=== PATIENT | male | born 1960 | race American Indian/Alaskan Native ===

== ENCOUNTER 2018-11-15 00:49 | Inpatient (IN) | payer BC ==
[2018-11-15] MEDS ORDERED: NACL 0.9% 500 ML 500 ML IV ONE (01:03)
[2018-11-15] MEDS ORDERED: TORADOL IV ONE (01:03)
[2018-11-15] MEDS ORDERED: NITROSTAT SL PRN (01:03)
[2018-11-15] MEDS ORDERED: PEPCID IV ONE (01:03)
--- NOTE | 2018-11-15 01:18 | Emergency Department Report ---
ED Chest Pain HPI - General Chief Complaint: Chest Pain Stated Complaint: CHEST PAIN Time Seen by Provider: 11/15/18 00:54 Source: patient, RN notes reviewed Mode of arrival: Ambulatory Limitations: No Limitations - History of Present Illness Initial Comments: This is a 58-year-old gentleman. This patient is not known to this provider previously in a clinical capacity. 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 He endorses a past medical history of hypertension, and takes lisinopril and Procardia. He does not take aspirin. He reports no family history of cardiac disease or pulmonary embolus/DVT that he is aware of. The patient is right-hand dominant, and presents to the emergency room with a complaint of nontraumatic right-sided burning chest pain. The chest pain is present for the past 15-20 minutes. The chest pain is constant. It does not radiate anywhere. The patient denies vomiting, diaphoresis, shortness of breath. The patient denies leg pain, leg swelling, abdominal pain, nausea, vomiting, diaphoresis, shortness of breath, hematemesis or bright red blood per rectum. He reports no recent erectile dysfunction medications, such cialis, or Viagra. He reports a recent trip to [place] within the past 2 weeks. MD Complaint: chest pain -: Gradual Onset: during rest Pain Location: right chest Pain Radiation: none Severity: moderate Quality: aching, other Consistency: constant Improves With: nothing Worsens With: nothing Context: recent travel Aspirin use within the Past 7 Days: (0) No - Related Data On Oral Contraceptives: No Previous Rx's Medication Instructions Recorded Last Taken Type Aspirin [Aspirin BABY CHEW TAB] 81 mg PO QDAY #30 tab.chew 11/15/18 Unknown Rx Famotidine [Pepcid] 20 mg PO QDAY #30 tablet 11/15/18 Unknown Rx Allergies Allergy/AdvReac Type Severity Reaction Status Date / Time No Known Allergies Allergy Unverified 11/15/18 00:56 Heart Score - HEART Score History: Slightly suspicious EKG: Non-specific Age: 45-65 Risk factors: 1-2 risk factors Troponin: < normal limit HEART Score: 3 - Critical Actions Critical Actions: 0-3 pts:0.9-1.7%risk of adverse cardiac event.Candidate for discharge ED Review of Systems ROS: Stated complaint: CHEST PAIN Other details as noted in HPI Constitutional: denies: fever Eyes: denies: eye discharge ENT: denies: epistaxis Respiratory: denies: cough Cardiovascular: chest pain Gastrointestinal: denies: abdominal pain, vomiting, hematemesis, melena, h ematochezia Musculoskeletal: denies: back pain Skin: denies: lesions Neurological: denies: weakness ED Past Medical Hx - Past Medical History Previous Medical History?: Yes Hx Hypertension: Yes - Surgical History Past Surgical History?: No - Social History Smoking Status: Never Smoker Substance Use Type: None - Medications Home Medications: Home Medications Medication Instructions Recorded Confirmed Last Taken Type Aspirin [Aspirin BABY CHEW TAB] 81 mg PO QDAY #30 tab.chew 11/15/18 Unknown Rx Famotidine [Pepcid] 20 mg PO QDAY #30 tablet 11/15/18 Unknown Rx ED Physical Exam - General Limitations: No Limitations General appearance: alert, anxious - Head Head exam: Present: atraumatic, normocephalic - Eye Eye exam: Present: normal appearance, EOMI. Absent: nystagmus - ENT ENT exam: Present: normal exam, normal orophraynx, mucous membranes moist, normal external ear exam - Neck Neck exam: Present: normal inspection, full ROM. Absent: tenderness, meningismus - Respiratory Respiratory exam: Present: rhonchi (very faint rhonchi noted in the bilateral hemithoraces, right greater than left). Absent: respiratory distress - Cardiovascular Cardiovascular Exam: Present: regular rate, normal rhythm, normal heart sounds. Absent: tachycardia, irregular rhythm, systolic murmur, diastolic murmur, rubs, gallop - GI/Abdominal GI/Abdominal exam: Present: soft, normal bowel sounds. Absent: distended, t enderness, guarding, rebound, rigid, pulsatile mass - Rectal Rectal exam: Present: deferred - Extremities Exam Extremities exam: Present: normal inspection, full ROM, other (2+ pulses noted in the bilateral upper, lower extremities. Compartments soft. No long bony tenderness. The pelvis is stable.). Absent: pedal edema, joint swelling, calf tenderness - Back Exam Back exam: Present: normal inspection, full ROM. Absent: tenderness, CVA tenderness (R), paraspinal tenderness, vertebral tenderness - Neurological Exam Neurological exam: Present: alert, normal gait, other (there is no facial droop. The tongue is midline. The extraocular movements are intact bilaterally. There is 5 out of 5 strength in 4 extremities. Patient speaking in full sentences.). Absent: motor sensory deficit - Psychiatric Psychiatric exam: Present: normal affect, normal mood - Skin Skin exam: Present: warm, dry, intact, normal color. Absent: rash ED Course Vital Signs 11/15/18 11/15/18 11/15/18 00:55 00:56 01:00 Temperature 98.2 F Pulse Rate 60 59 L 61 Respiratory 15 19 21 Rate Blood Pressure 190/117 178/115 O2 Sat by Pulse 98 Oximetry 11/15/18 11/15/18 11/15/18 01:15 01:31 01:45 Temperature Pulse Rate 63 65 58 L Respiratory 15 17 17 Rate Blood Pressure 169/111 166/103 138/89 O2 Sat by Pulse Oximetry 11/15/18 02:00 Temperature Pulse Rate 59 L Respiratory 19 Rate Blood Pressure 147/91 O2 Sat by Pulse Oximetry - Reevaluation(s) Reevaluation #1: 11/15/18 01:20 Differential diagnosis, including but not limited to: GERD, gastritis, costochondritis, hiatal hernia, acute coronary syndrome, pericarditis, myocarditis, pneumonia, pulmonary embolus Assessment and plan: 58-year-old gentleman, only vascular risk factor for cardiac disease is hypertension, coming in with right-sided chest pain, not tachycardic, not hypoxic, with nonspecific pulmonary rhonchi. He is otherwise afebrile with reassuring vital signs. Blood pressure improved, now in the 170s without any intervention. We will treat the patient's pain. We will obtain screening laboratory studies, d-dimer, x-ray of the chest, place patient on a front desk monitor, and observed. Reevaluation #2: 11/15/18 03:09 The patient is resting comfortably, and he is in no acute distress. Troponin negative 1. D-dimer negative. Hypertension improved. Patient reports he is chest pain-free. Extensive discussion had with patient. Discussed that patient is at low statistical risk for major adverse cardiac event. Involved patient decision making process. Informed patient that he may be admitted to the edical service for cardiac risk stratification, but that apparently he would also be reasonable to follow up as an outpatient to have a stratification completed. The patient states he wants to follow-up as an outpatient. We are awaiting troponin #2. Through shared decision making, assuming troponin #2 is unremarkable, and patient remains comfortable, he will be discharged with instructions to follow up with outpatient cardiology to complete his cardiac risk stratification. His repeat EKG appears to be unremarkable and unchanged from the prior. Reevaluation #3: 11/15/18 04:35 Repeat EKG appears to be unremarkable and unchanged from prior. The patient is chest pain-free at this time. However, repeat troponin shows nonspecific abnormality and elevated cardiac enzymes. I have gone back to reevaluate the patient. I have discussed these new laboratory findings with the patient. I have recommended admission to the hospital for further cardiac evaluation and risk stratification. The patient is amenable to this plan of care. Dr Petit accepts the patient to the medical service. Cardiology padder cushion paged. - Consultations Consultation #1: 11/15/18 04:40 D/W Dr Jarad Chavez, cardiology padder cushion, who will follow in consultation CHAGO score - Chago Score Age > 65: (0) No Aspirin use within the Past 7 Days: (0) No 3 or more CAD Risk Factors: (0) No 2 or more Angina events in past 24 hrs: (0) No Known CAD with more than 50% Stenosis: (0) No Elevated Cardiac Markers: (0) No ST Deviation Greater than 0.5mm: (0) No CHAGO Score: 0 ED Medical Decision Making - Lab Data Result diagrams: 11/15/18 01:08 11/15/18 01:08 Vital Signs 11/15/18 00:56 Temperature 98.2 F Pulse Rate 59 L Respiratory 19 Rate Blood Pressure 190/117 O2 Sat by Pulse 98 Oximetry - EKG Data -: EKG Interpreted by Al EKG shows normal: sinus rhythm Rate: normal - EKG Data When compared to previous EKG there are: previous EKG unavailable 11/15/18 01:20 This is a normal sinus rhythm, 61 beats for minute, normal axis, GA interval prolonged, borderline left ventricular hypertrophy, Q waves noted 1, aVL, T wave inversion lead 3, this is an abnormal EKG, there is no prior EKG for comparison, this EKG is not consistent with ST elevation myocardial infarction. - Radiology Data Radiology results: pending, report reviewed, image reviewed X-ray of the chest is negative for acute disease.Print Report Referring Physician: CHECO CLAY Patient Name: WENDY GONZALEZ Date of : 1960 Sex: Male Report Date: 2018-11-15 Report Status: Finalized Findings [facility] [address] [place] [address] XRay Report Signed Patient: WENDY GONZALEZ MR#: [id number] 9 : 1960 Acct:[id number] Age/Sex: 58 / M ADM Date: 11/15/18 Loc: ED Attending Dr: Ordering Physician: CHECO CLAY MD Date of Service: 11/15/18 Procedure(s): XR chest 1V ap Accession Number(s): [id number] cc: CHECO CLAY MD Fluoro Time In Minutes: PROCEDURE: XR CHEST 1V AP TECHNIQUE: Chest radiograph single view. HISTORY: Chest Pain COMPARISONS: None . FINDINGS: Heart: Normal. Mediastinum/Vessels: Normal. Lungs/Pleural space: Normal. Bony thorax: No acute osseous abnormality. Life support devices: None. IMPRESSION: No acute cardiopulmonary abnormality. This document is electronically signed by Sreenity West DO., Nov 15 2018 01:31:50 AM ET Transcribed By: [facility] Dictated By: SERENITY WEST MD Electronically Authenticated By: SERENITY WEST MD Signed Date/Time: 11/15/18 0133 Critical care attestation.: If time is entered above; I have spent that time in minutes in the direct care of this critically ill patient, excluding procedure time. ED Disposition Clinical Impression: Right-sided chest pain, Elevated troponin Disposition: OP ADMIT IP TO THIS HOSP Is pt being admited?: Yes Does the pt Need Aspirin: Yes Condition: Stable Instructions: Chest Pain (ED) Additional Instructions: Continue outpatient medications. Avoid consumption of Motrin, Naprosyn, Aleve, heavy, spicy foods. Please follow up with a soil fertility specialist within the next 3 days to schedule outpatient stress test. Return to the emergency room right away with new pain, worsened pain, migration of pain, projectile vomiting, change in mental status, confusion, inability to tolerate liquid feeds, new, worsening or different symptoms not present on the initial emergency room evaluation. Prescriptions: Aspirin [Aspirin BABY CHEW TAB] 81 mg PO QDAY #30 tab.chew Famotidine [Pepcid] 20 mg PO QDAY #30 tablet Referrals: AYO RAE MD [Staff Physician] - 3-5 Days MARLEY PABON MD [Staff Physician] - 3-5 Days
[2018-11-15 01:23] LABS: Basophils # (Auto) 0.1 K/mm3 (0.0-0.1); Basophils % (Auto) 0.7 % (0.0-1.8); Eosinophils # (Auto) 0.2 K/mm3 (0.0-0.4); Eosinophils % (Auto) 3.1 % (0.0-4.3); Hematocrit 41.2 % (35.5-45.6); Lymphocytes # (Auto) 1.7 K/mm3 (1.2-5.4); Lymphocytes % (Auto) 24.6 % (13.4-35.0); Mean Corpuscular HGB Conc 34 % (32-34); Mean Corpuscular Volume 90 fl (84-94); Monocytes # (Auto) 0.6 K/mm3 (0.0-0.8); Monocytes % (Auto) 8.2 % (0.0-7.3); Platelet Count 200 K/mm3 (140-440); Red Blood Count 4.58 M/mm3 (3.65-5.03); Red Cell Distribution Width 13.3 % (13.2-15.2)
--- NOTE | 2018-11-15 01:33 | XRay Report ---
PROCEDURE: XR CHEST 1V AP TECHNIQUE: Chest radiograph single view. HISTORY: Chest Pain COMPARISONS: None . FINDINGS: Heart: Normal. Mediastinum/Vessels: Normal. Lungs/Pleural space: Normal. Bony thorax: No acute osseous abnormality. Life support devices: None. IMPRESSION: No acute cardiopulmonary abnormality. This document is electronically signed by Serenity West DO., Nov 15 2018 01:31:50 AM ET
[2018-11-15 02:30] LABS: Alanine Aminotransferase 22 units/L (7-56); Albumin 4.2 g/dL (3.9-5); BUN/Creatinine Ratio 18; Blood Urea Nitrogen 24 mg/dL (9-20); Calcium 9.6 mg/dL (8.4-10.2); Hemolysis Index 7
[2018-11-15] MEDS ORDERED: BABY ASPIRIN PO ONE (04:37)
[2018-11-15] MEDS ORDERED: MORPHINE IV PRN (04:41)
[2018-11-15] MEDS ORDERED: ZOFRAN IV PRN (04:41)
[2018-11-15] MEDS ORDERED: TYLENOL PO PRN (04:41)
[2018-11-15] MEDS ORDERED: SODIUM CHLORIDE FLUSH SYRINGE 10 ML IV PRN ×2 (04:41)
[2018-11-15] MEDS ORDERED: DILAUDID IV PRN (04:42)
[2018-11-15 04:53] LABS: Chol/HDL Ratio 3.48 %
[2018-11-15] MEDS ORDERED: APRESOLINE IV PRN (05:06)
[2018-11-15] MEDS ORDERED: NORVASC PO ONE (05:07)
--- NOTE | 2018-11-15 05:14 | History and Physical Report ---
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 Since he was in the facility he decided to go to the ED for further evaluation. He describes the pain as constant, sharp, and burning. He rates his pain as 7/10. There are no aggravating or relieving factors. Denies h eadache, cough,n/v, diaphoresis, or dyspnea. Past History Past Medical History: hypertension Past Surgical History: No surgical history Social history: , lives with family Family history: no significant family history Medications and Allergies Allergies Allergy/AdvReac Type Severity Reaction Status Date / Time No Known Allergies Allergy Verified 11/15/18 04:51 Home Medications Medication Instructions Recorded Confirmed Last Taken Type Aspirin [Aspirin BABY CHEW TAB] 81 mg PO QDAY #30 tab.chew 11/15/18 Unknown Rx Famotidine [Pepcid] 20 mg PO QDAY #30 tablet 11/15/18 Unknown Rx Zestoretic 10-12.5 mg Tablet 1 tab PO DAILY 11/15/18 11/15/18 11/14/18 History 1 amLODIPine [Norvasc] 5 mg PO DAILY 11/15/18 11/15/18 11/14/18 History 5mg Active Meds: Active Medications Acetaminophen (Tylenol) 650 mg PO Q4H PRN PRN Reason: Pain MILD(1-3)/Fever >100.5/JASON Amlodipine Besylate (Norvasc) 5 mg PO ONCE ONE Stop: 11/15/18 05:08 Aspirin (Baby Aspirin) 81 mg PO QDAY RYANN Atorvastatin Calcium (Lipitor) 40 mg PO QHS RYANN Enoxaparin Sodium (Lovenox) 30 mg SUB-Q QDAY RYANN Hydralazine HCl (Apresoline) 10 mg IV Q4HR PRN PRN Reason: Blood Pressure Hydromorphone HCl (Dilaudid) 0.5 mg IV Q3H PRN PRN Reason: Pain , Severe (7-10) Stop: 11/16/18 23:59 Morphine Sulfate (Morphine) 2 mg IV Q4H PRN PRN Reason: Pain, Moderate (4-6) Stop: 11/16/18 23:59 Nitroglycerin (Nitrostat) 0.4 mg SL .Q5MIN PRN PRN Reason: Chest Pain Last Admin: 11/15/18 01:35 Dose: 0.4 mg Documented by: Ondansetron HCl (Zofran) 4 mg IV Q8H PRN PRN Reason: Nausea And Vomiting Sodium Chloride (Sodium Chloride Flush Syringe 10 Ml) 10 ml IV BID [facility] Sodium Chloride (Sodium Chloride Flush Syringe 10 Ml) 10 ml IV PRN PRN PRN Reason: LINE FLUSH Generic Name Dose Route Start Last Admin Trade Name Freq PRN Reason Stop Dose Admin Acetaminophen 650 mg 11/15/18 04:41 Tylenol PO Q4H PRN Pain MILD(1-3)/Fever >100.5/JASON Aspirin 81 mg 11/16/18 10:00 Baby Aspirin PO QDAY [facility] Atorvastatin Calcium 40 mg 11/15/18 22:00 Lipitor PO QHS [facility] Enoxaparin Sodium 40 mg 11/15/18 10:00 Lovenox SUB-Q QDAY@1000 [facility] Hydralazine HCl 10 mg 11/15/18 05:06 Apresoline IV Q4HR PRN Blood Pressure Hydromorphone HCl 0.5 mg 11/15/18 04:42 Dilaudid IV 11/16/18 23:59 Q3H PRN Pain , Severe (7-10) Morphine Sulfate 2 mg 11/15/18 04:41 Morphine IV 11/16/18 23:59 Q4H PRN Pain, Moderate (4-6) Nitroglycerin 0.4 mg 11/15/18 01:03 11/15/18 01:35 Nitrostat SL 0.4 mg .Q5MIN PRN Administration Chest Pain Ondansetron HCl 4 mg 11/15/18 04:41 Zofran IV Q8H PRN Nausea And Vomiting Sodium Chloride 10 ml 11/15/18 10:00 Sodium Chloride Flush Syringe 10 Ml IV BID RYANN Sodium Chloride 10 ml 11/15/18 04:41 Sodium Chloride Flush Syringe 10 Ml IV PRN PRN LINE FLUSH Generic Name Dose Route Start Last Admin Trade Name Raulq PRN Reason Stop Dose Admin Acetaminophen 650 mg 11/15/18 04:41 Tylenol PO Q4H PRN Pain MILD(1-3)/Fever >100.5/JAOSN Aspirin 81 mg 11/16/18 10:00 Baby Aspirin PO QDAY [facility] Atorvastatin Calcium 40 mg 11/15/18 22:00 Lipitor PO QHS [facility] Enoxaparin Sodium 40 mg 11/15/18 10:00 Lovenox SUB-Q QDAY@1000 RYANN Hydralazine HCl 10 mg 11/15/18 05:06 Apresoline IV Q4HR PRN Blood Pressure Hydromorphone HCl 0.5 mg 11/15/18 04:42 Dilaudid IV 11/16/18 23:59 Q3H PRN Pain , Severe (7-10) Morphine Sulfate 2 mg 11/15/18 04:41 Morphine IV 11/16/18 23:59 Q4H PRN Pain, Moderate (4-6) Nitroglycerin 0.4 mg 11/15/18 01:03 11/15/18 01:35 Nitrostat SL 0.4 mg .Q5MIN PRN Administration Chest Pain Ondansetron HCl 4 mg 11/15/18 04:41 Zofran IV Q8H PRN Nausea And Vomiting Sodium Chloride 10 ml 11/15/18 10:00 Sodium Chloride Flush Syringe 10 Ml IV BID [facility] Sodium Chloride 10 ml 11/15/18 04:41 Sodium Chloride Flush Syringe 10 Ml IV PRN PRN LINE FLUSH Generic Name Dose Route Start Last Admin Trade Name Raulq PRN Reason Stop Dose Admin Acetaminophen 650 mg 11/15/18 04:41 Tylenol PO Q4H PRN Pain MILD(1-3)/Fever >100.5/JASON Aspirin 81 mg 11/16/18 10:00 Baby Aspirin PO QDAY [facility] Atorvastatin Calcium 40 mg 11/15/18 22:00 Lipitor PO QHS [facility] Enoxaparin Sodium 40 mg 11/15/18 10:00 Lovenox SUB-Q QDAY@1000 R[facility]ANN Hydralazine HCl 10 mg 11/15/18 05:06 Apresoline IV Q4HR PRN Blood Pressure Hydromorphone HCl 0.5 mg 11/15/18 04:42 Dilaudid IV 11/16/18 23:59 Q3H PRN Pain , Severe (7-10) Morphine Sulfate 2 mg 11/15/18 04:41 Morphine IV 11/16/18 23:59 Q4H PRN Pain, Moderate (4-6) Nitroglycerin 0.4 mg 11/15/18 01:03 11/15/18 01:35 Nitrostat SL 0.4 mg .Q5MIN PRN Administration Chest Pain Ondansetron HCl 4 mg 11/15/18 04:41 Zofran IV Q8H PRN Nausea And Vomiting Sodium Chloride 10 ml 11/15/18 10:00 Sodium Chloride Flush Syringe 10 Ml IV BID [facility] Sodium Chloride 10 ml 11/15/18 04:41 Sodium Chloride Flush Syringe 10 Ml IV PRN PRN LINE FLUSH Generic Name Dose Route Start Last Admin Trade Name Freq PRN Reason Stop Dose Admin Acetaminophen 650 mg 11/15/18 04:41 Tylenol PO Q4H PRN Pain MILD(1-3)/Fever >100.5/JASON Aspirin 81 mg 11/16/18 10:00 Baby Aspirin PO QDAY [facility] Atorvastatin Calcium 40 mg 11/15/18 22:00 Lipitor PO QHS [facility] Enoxaparin Sodium 40 mg 11/15/18 10:00 Lovenox SUB-Q QDAY@1000 [facility] Hydralazine HCl 10 mg 11/15/18 05:06 Apresoline IV Q4HR PRN Blood Pressure Hydromorphone HCl 0.5 mg 11/15/18 04:42 Dilaudid IV 11/16/18 23:59 Q3H PRN Pain , Severe (7-10) Morphine Sulfate 2 mg 11/15/18 04:41 Morphine IV 11/16/18 23:59 Q4H PRN Pain, Moderate (4-6) Nitroglycerin 0.4 mg 11/15/18 01:03 11/15/18 01:35 Nitrostat SL 0.4 mg .Q5MIN PRN Administration Chest Pain Ondansetron HCl 4 mg 11/15/18 04:41 Zofran IV Q8H PRN Nausea And Vomiting Sodium Chloride 10 ml 11/15/18 10:00 Sodium Chloride Flush Syringe 10 Ml IV BID RYANN Sodium Chloride 10 ml 11/15/18 04:41 Sodium Chloride Flush Syringe 10 Ml IV PRN PRN LINE FLUSH Generic Name Dose Route Start Last Admin Trade Name Freq PRN Reason Stop Dose Admin Acetaminophen 650 mg 11/15/18 04:41 Tylenol PO Q4H PRN Pain MILD(1-3)/Fever >100.5/JASON Aspirin 81 mg 11/16/18 10:00 Baby Aspirin PO QDAY [facility] Atorvastatin Calcium 40 mg 11/15/18 22:00 Lipitor PO QHS [facility] Enoxaparin Sodium 40 mg 11/15/18 10:00 Lovenox SUB-Q QDAY@1000 [facility] Hydralazine HCl 10 mg 11/15/18 05:06 Apresoline IV Q4HR PRN Blood Pressure Hydromorphone HCl 0.5 mg 11/15/18 04:42 Dilaudid IV 11/16/18 23:59 Q3H PRN Pain , Severe (7-10) Morphine Sulfate 2 mg 11/15/18 04:41 Morphine IV 11/16/18 23:59 Q4H PRN Pain, Moderate (4-6) Nitroglycerin 0.4 mg 11/15/18 01:03 11/15/18 01:35 Nitrostat SL 0.4 mg .Q5MIN PRN Administration Chest Pain Ondansetron HCl 4 mg 11/15/18 04:41 Zofran IV Q8H PRN Nausea And Vomiting Sodium Chloride 10 ml 11/15/18 10:00 Sodium Chloride Flush Syringe 10 Ml IV BID [facility] Sodium Chloride 10 ml 11/15/18 04:41 Sodium Chloride Flush Syringe 10 Ml IV PRN PRN LINE FLUSH Review of Systems All systems: negative (review and no additional remarkable complaints except) Cardiovascular: chest pain, high blood pressure Exam - Physical Exam Narrative exam: Physical exam General appearance: Present: Pleasant, No acute distress, awake, alert and oriented 3 - EENT Eyes: Present: PERRL, EOM intact ENT: hearing intact, - Neck Neck: Present: supple, normal ROM - Respiratory Respiratory effort: Non-labored Respiratory: Clear throughout - Cardiovascular Heart rate: 60 (bpm) Rhythm: regular Heart Sounds: Present: S1 & S2. Absent: rub, click - Extremities Extremities: no ischemia, pulses intact, - Peripheral Assessment Peripheral Pulses: within normal limits - Abdominal General gastrointestinal: soft, non-tender, normal bowel sounds - Integumentary Integumentary: Present: warm, dry - Musculoskeletal Musculoskeletal: Able to move all extremities - Psychiatric Psychiatric: cooperative - Constitutional Vitals: Temp Pulse Resp BP Pulse Ox 98.2 F 75 16 128/92 98 11/15/18 00:56 11/15/18 04:30 11/15/18 04:42 11/15/18 04:30 11/15/18 00:56 Results - Labs CBC & Chem 7: 11/15/18 01:08 11/15/18 01:08 Labs: Laboratory Last Values WBC 7.0 K/mm3 (4.5-11.0) 11/15/18 01:08 RBC 4.58 M/mm3 (3.65-5.03) 11/15/18 01:08 Hgb 14.0 gm/dl (11.8-15.2) 11/15/18 01:08 Hct 41.2 % (35.5-45.6) 11/15/18 01:08 MCV 90 fl (84-94) 11/15/18 01:08 MCH 31 pg (28-32) 11/15/18 01:08 MCHC 34 % (32-34) 11/15/18 01:08 RDW 13.3 % (13.2-15.2) 11/15/18 01:08 Plt Count 200 K/mm3 (140-440) 11/15/18 01:08 Lymph % (Auto) 24.6 % (13.4-35.0) 11/15/18 01:08 [place] % (Auto) 8.2 % (0.0-7.3) H 11/15/18 01:08 Eos % (Auto) 3.1 % (0.0-4.3) 11/15/18 01:08 Baso % (Auto) 0.7 % (0.0-1.8) 11/15/18 01:08 Lymph # 1.7 K/mm3 (1.2-5.4) 11/15/18 01:08 [place] # 0.6 K/mm3 (0.0-0.8) 11/15/18 01:08 Eos # 0.2 K/mm3 (0.0-0.4) 11/15/18 01:08 Baso # 0.1 K/mm3 (0.0-0.1) 11/15/18 01:08 Seg Neutrophils % 63.4 % (40.0-70.0) 11/15/18 01:08 Seg Neutrophils # 4.5 K/mm3 (1.8-7.7) 11/15/18 01:08 185.05 ng/mlDDU (0-234) 11/15/18 01:08 Sodium 141 mmol/L (137-145) 11/15/18 01:08 Potassium 3.6 mmol/L (3.6-5.0) 11/15/18 01:08 Chloride 103.1 mmol/L (98-107) 11/15/18 01:08 Carbon Dioxide 28 mmol/L (22-30) 11/15/18 01:08 14 mmol/L 11/15/18 01:08 BUN 24 mg/dL (9-20) H 11/15/18 01:08 1.3 mg/dL (0.8-1.5) 11/15/18 01:08 Estimated GFR > 60 ml/min 11/15/18 01:08 18 % 11/15/18 01:08 Glucose 110 mg/dL (75-100) H 11/15/18 01:08 Calcium 9.6 mg/dL (8.4-10.2) 11/15/18 01:08 Magnesium 2.10 mg/dL (1.7-2.3) 11/15/18 01:08 0.40 mg/dL (0.1-1.2) 11/15/18 01:08 AST 22 units/L (5-40) 11/15/18 01:08 ALT 22 units/L (7-56) 11/15/18 01:08 85 units/L (35-129) 11/15/18 01:08 81 units/L (55-170) 11/15/18 01:08 0.062 ng/mL (0.00-0.029) H D 11/15/18 03:46 7.6 g/dL (6.3-8.2) 11/15/18 01:08 4.2 g/dL (3.9-5) 11/15/18 01:08 1.2 % 11/15/18 01:08 Triglycerides 93 mg/dL (2-149) 11/15/18 03:46 Cholesterol 157 mg/dL (50-199) 11/15/18 03:46 112 mg/dL (50-130) 11/15/18 03:46 45 mg/dL (40-59) 11/15/18 03:46 3.48 % 11/15/18 03:46 Short CBC 11/15/18 Range/Units 01:08 WBC 7.0 (4.5-11.0) K/mm3 Hgb 14.0 (11.8-15.2) gm/dl Hct 41.2 (35.5-45.6) % Plt Count 200 (140-440) K/mm3 BMP 11/15/18 01:08 Sodium 141 Potassium 3.6 Chloride 103.1 Carbon Dioxide 28 BUN 24 H Creatinine 1.3 Glucose 110 H Calcium 9.6 Cardiac Enzymes 11/15/18 11/15/18 Range/Units 01:08 03:46 Total Creatine Kinase 81 (55-170) units/L Troponin T < 0.010 0.062 H D (0.00-0.029) ng/mL Liver Function 11/15/18 Range/Units 01:08 Total Bilirubin 0.40 (0.1-1.2) mg/dL AST 22 (5-40) units/L ALT 22 (7-56) units/L Alkaline Phosphatase 85 (35-129) units/L Albumin 4.2 (3.9-5) g/dL - Imaging and Cardiology EKG: image reviewed (Sinus rhythm at 60 bpm, prolonged SC interval) Assessment and Plan Assessment and plan: 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 Since he was in the facility, he decided to go to the ED for further evaluation. Troponin 1 negative, repeat Troponin elevated at 0.062. D-dimer negative. He was found to be in with blood pressure of hypertensive urgency 190/117. Will admit to telemetry unit. Cardiology consult. NStemi ACS Hypertensive urgency Hypertension Plans: Continue supportive care Repeat troponin pending Continuous telemetry monitoring Nothing by mouth Monitor BP Start Norvasc 5 mg daily; IV hydralazine when necessary Start aspirin 81 mg, Lipitor 40 mg Nitroglycerin when necessary Pain management Lexiscan pending Cardiology consulted DVT PPX on Lovenox and SCDs Advance Directives: No VTE prophylaxis?: Chemical Plan of care discussed with patient/family: Yes <KAM THOMSON - Last Filed: 11/16/18 03:00> History of Present Illness Date of admission: 11/15/18 04:38 Medications and Allergies Active Meds: Active Medications Acetaminophen (Tylenol) 650 mg PO Q4H PRN PRN Reason: Pain MILD(1-3)/Fever >100.5/JASON Amlodipine Besylate (Norvasc) 5 mg PO QDAY [facility] Aspirin (Baby Aspirin) 81 mg PO QDAY [facility] Atorvastatin Calcium (Lipitor) 80 mg PO QHS [facility] Last Admin: 11/15/18 21:16 Dose: 80 mg Documented by: Hydralazine HCl (Apresoline) 10 mg IV Q4HR PRN PRN Reason: Blood Pressure Last Admin: 11/15/18 12:39 Dose: 10 mg Documented by: Hydromorphone HCl (Dilaudid) 0.5 mg IV Q3H PRN PRN Reason: Pain , Severe (7-10) Stop: 11/16/18 23:59 Morphine Sulfate (Morphine) 2 mg IV Q4H PRN PRN Reason: Pain, Moderate (4-6) Stop: 11/16/18 23:59 Nitroglycerin (Nitrostat) 0.4 mg SL .Q5MIN PRN PRN Reason: Chest Pain Last Admin: 11/15/18 01:35 Dose: 0.4 mg Documented by: Ondansetron HCl (Zofran) 4 mg IV Q8H PRN PRN Reason: Nausea And Vomiting Prasugrel (Effient) 10 mg PO QDAY [facility] Sodium Chloride (Sodium Chloride Flush Syringe 10 Ml) 10 ml IV BID [facility] Last Admin: 11/15/18 09:57 Dose: 10 ml Documented by: Sodium Chloride (Sodium Chloride Flush Syringe 10 Ml) 10 ml IV PRN PRN PRN Reason: LINE FLUSH Exam - Constitutional Vitals: Temp Pulse Resp BP Pulse Ox 98.1 F 68 18 142/84 99 11/15/18 11:55 11/15/18 17:00 11/15/18 17:00 11/15/18 17:00 11/15/18 16:00 Results - Labs CBC & Chem 7: 11/15/18 01:08 11/15/18 01:08 Labs: Laboratory Last Values WBC 7.0 K/mm3 (4.5-11.0) 11/15/18 01:08 RBC 4.58 M/mm3 (3.65-5.03) 11/15/18 01:08 Hgb 14.0 gm/dl (11.8-15.2) 11/15/18 01:08 Hct 41.2 % (35.5-45.6) 11/15/18 01:08 MCV 90 fl (84-94) 11/15/18 01:08 MCH 31 pg (28-32) 11/15/18 01:08 MCHC 34 % (32-34) 11/15/18 01:08 RDW 13.3 % (13.2-15.2) 11/15/18 01:08 Plt Count 200 K/mm3 (140-440) 11/15/18 01:08 Lymph % (Auto) 24.6 % (13.4-35.0) 11/15/18 01:08 [place] % (Auto) 8.2 % (0.0-7.3) H 11/15/18 01:08 Eos % (Auto) 3.1 % (0.0-4.3) 11/15/18 01:08 Baso % (Auto) 0.7 % (0.0-1.8) 11/15/18 01:08 Lymph # 1.7 K/mm3 (1.2-5.4) 11/15/18 01:08 [place] # 0.6 K/mm3 (0.0-0.8) 11/15/18 01:08 Eos # 0.2 K/mm3 (0.0-0.4) 11/15/18 01:08 Baso # 0.1 K/mm3 (0.0-0.1) 11/15/18 01:08 Seg Neutrophils % 63.4 % (40.0-70.0) 11/15/18 01:08 Seg Neutrophils # 4.5 K/mm3 (1.8-7.7) 11/15/18 01:08 PT 14.3 Sec. (12.2-14.9) 11/15/18 09:47 INR 1.05 (0.87-1.13) 11/15/18 09:47 185.05 ng/mlDDU (0-234) 11/15/18 01:08 Sodium 141 mmol/L (137-145) 11/15/18 01:08 Potassium 3.6 mmol/L (3.6-5.0) 11/15/18 01:08 Chloride 103.1 mmol/L (98-107) 11/15/18 01:08 Carbon Dioxide 28 mmol/L (22-30) 11/15/18 01:08 14 mmol/L 11/15/18 01:08 BUN 24 mg/dL (9-20) H 11/15/18 01:08 1.3 mg/dL (0.8-1.5) 11/15/18 01:08 Estimated GFR > 60 ml/min 11/15/18 01:08 18 % 11/15/18 01:08 Glucose 110 mg/dL (75-100) H 11/15/18 01:08 Calcium 9.6 mg/dL (8.4-10.2) 11/15/18 01:08 Magnesium 2.10 mg/dL (1.7-2.3) 11/15/18 01:08 0.40 mg/dL (0.1-1.2) 11/15/18 01:08 AST 22 units/L (5-40) 11/15/18 01:08 ALT 22 units/L (7-56) 11/15/18 01:08 85 units/L (35-129) 11/15/18 01:08 81 units/L (55-170) 11/15/18 01:08 0.322 ng/mL (0.00-0.029) H* D 11/15/18 07:23 7.6 g/dL (6.3-8.2) 11/15/18 01:08 4.2 g/dL (3.9-5) 11/15/18 01:08 1.2 % 11/15/18 01:08 Triglycerides 93 mg/dL (2-149) 11/15/18 03:46 Cholesterol 157 mg/dL (50-199) 11/15/18 03:46 112 mg/dL (50-130) 11/15/18 03:46 45 mg/dL (40-59) 11/15/18 03:46 3.48 % 11/15/18 03:46 Assessment and Plan Assessment and plan: I personally discussed the patient with the [employer] and I agree with the above assessment and plan
--- NOTE | 2018-11-15 09:28 | Consultation ---
History of Present Illness Consult date: 11/15/18 Requesting physician: CHECO CLAY Consult reason: abnormal cardiac enzymes, chest pain History of present illness: The pt is a 58 YO male with a past medical history of HTN. He is previously unknown to our practice. 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 He received SL nitro in ED and the pain resolved. He denies any associated symptoms. He denies any prior cardiac issues or cardiac w/u. On evaluation, he denies any current complaints. He was originally scheduled for stress test this morning but was noted to have an upwards trend in his troponins overnight and thus it was decided to proceed with coronary angiography instead. Past History Past Medical History: hypertension Past Surgical History: No surgical history Social history: , lives with family Family history: no significant family history Medications and Allergies Allergies Allergy/AdvReac Type Severity Reaction Status Date / Time No Known Allergies Allergy Verified 11/15/18 04:51 Home Medications Medication Instructions Recorded Confirmed Last Taken Type Aspirin [Aspirin BABY CHEW TAB] 81 mg PO QDAY #30 tab.chew 11/15/18 Unknown Rx Famotidine [Pepcid] 20 mg PO QDAY #30 tablet 11/15/18 Unknown Rx Active Meds: Active Medications Acetaminophen (Tylenol) 650 mg PO Q4H PRN PRN Reason: Pain MILD(1-3)/Fever >100.5/JASON Amlodipine Besylate (Norvasc) 5 mg PO QDAY RYANN Aspirin (Baby Aspirin) 81 mg PO QDAY RYANN Atorvastatin Calcium (Lipitor) 40 mg PO QHS [facility] Heparin Sodium (Porcine) (Heparin 10,000 Units/10 Ml) 5,000 unit IV ONCE ONE Stop: 11/15/18 10:01 Hydralazine HCl (Apresoline) 10 mg IV Q4HR PRN PRN Reason: Blood Pressure Hydromorphone HCl (Dilaudid) 0.5 mg IV Q3H PRN PRN Reason: Pain , Severe (7-10) Stop: 11/16/18 23:59 Sodium Chloride (Nacl 0.9% 500 Ml) 500 mls @ 50 mls/hr IV DIRECT RYANN Stop: 11/15/18 19:59 Morphine Sulfate (Morphine) 2 mg IV Q4H PRN PRN Reason: Pain, Moderate (4-6) Stop: 11/16/18 23:59 Nitroglycerin (Nitrostat) 0.4 mg SL .Q5MIN PRN PRN Reason: Chest Pain Last Admin: 11/15/18 01:35 Dose: 0.4 mg Documented by: Ondansetron HCl (Zofran) 4 mg IV Q8H PRN PRN Reason: Nausea And Vomiting Sodium Chloride (Sodium Chloride Flush Syringe 10 Ml) 10 ml IV BID RYANN Sodium Chloride (Sodium Chloride Flush Syringe 10 Ml) 10 ml IV PRN PRN PRN Reason: LINE FLUSH Review of Systems Constitutional: no weight loss, no weight gain, no fever, no chills, no sweats Ears, nose, mouth and throat: no ear pain, no nose pain, no sinus pressure, no sinus pain Cardiovascular: chest pain, no orthopnea, no palpitations, no rapid/irregular heart beat, no edema, no syncope, no lightheadedness, no shortness of breath, no dyspnea on exertion Respiratory: no cough, no shortness of breath, no dyspnea on exertion, no congestion, no wheezing, no pain on inspiration Gastrointestinal: no abdominal pain, no nausea, no vomiting, no diarrhea, no constipation, no change in bowel habits Genitourinary Male: no dysuria, no hematuria, no flank pain, no discharge, no urinary frequency, no urinary hesitancy Musculoskeletal: no neck stiffness, no neck pain, no shooting arm pain, no arm numbness/tingling, no low back pain, no shooting leg pain Integumentary: no rash, no pruritis, no redness, no sores, no wounds Neurological: no head injury, no paralysis, no weakness, no parathesias, no numbness, no tingling, no seizures, no syncope Psychiatric: no anxiety Endocrine: no cold intolerance, no heat intolerance Hematologic/Lymphatic: no easy bruising, no easy bleeding Allergic/Immunologic: no urticaria, no wheezing Physical Examination Vital Signs Pulse Resp 60 15 11/15/18 00:55 11/15/18 00:55 General appearance: no acute distress HEENT: Positive: PERRL, Normocephaly, Mucus Membranes Moist Neck: Positive: neck supple, trachea midline Cardiac: Positive: Reg Rate and Rhythm, S1/S2 Lungs: Positive: clear to auscultation Neuro: Positive: Grossly Intact Abdomen: Positive: Soft. Negative: Tender Male genitourinary: Negative: tender Skin: Positive: Clear. Negative: Rash, Wound Musculoskeletal: No Pain Extremities: Absent: edema Results 11/15/18 01:08 11/15/18 01:08 Cardiac Enzymes 11/15/18 Range/Units 01:08 AST 22 (5-40) units/L Lipids 11/15/18 Range/Units 03:46 Triglycerides 93 (2-149) mg/dL Cholesterol 157 (50-199) mg/dL HDL Cholesterol 45 (40-59) mg/dL Cholesterol/HDL Ratio 3.48 % CBC 11/15/18 Range/Units 01:08 WBC 7.0 (4.5-11.0) K/mm3 RBC 4.58 (3.65-5.03) M/mm3 Hgb 14.0 (11.8-15.2) gm/dl Hct 41.2 (35.5-45.6) % Plt Count 200 (140-440) K/mm3 Lymph # 1.7 (1.2-5.4) K/mm3 [place] # 0.6 (0.0-0.8) K/mm3 Eos # 0.2 (0.0-0.4) K/mm3 Baso # 0.1 (0.0-0.1) K/mm3 Comprehensive Metabolic Panel 11/15/18 Range/Units 01:08 Sodium 141 (137-145) mmol/L Potassium 3.6 (3.6-5.0) mmol/L Chloride 103.1 (98-107) mmol/L Carbon Dioxide 28 (22-30) mmol/L BUN 24 H (9-20) mg/dL Creatinine 1.3 (0.8-1.5) mg/dL Glucose 110 H (75-100) mg/dL Calcium 9.6 (8.4-10.2) mg/dL AST 22 (5-40) units/L ALT 22 (7-56) units/L Alkaline Phosphatase 85 (35-129) units/L Total Protein 7.6 (6.3-8.2) g/dL Albumin 4.2 (3.9-5) g/dL - Imaging and Cardiology Echo: pending Cardiac cath: pending EKG: report reviewed, image reviewed EKG interpretations - Telemetry EKG Rhythm: Sinus Rhythm - EKG Sinus rhythms and dysrhythmias: sinus rhythm Assessment and Plan S/p LHC with PCI of OM. Initiate ASA 81, effient, lipitor. Consider BB if BPs permit. Obtain echo. The patient has been seen in conjunction with Dr. Allison Garcia who agrees with the assessment and plan of care. - Patient Problems (1) NSTEMI (non-ST elevated myocardial infarction) Current Visit: Yes Status: Acute (2) CAD (coronary artery disease) Current Visit: Yes Status: Chronic (3) Stented coronary artery Current Visit: Yes Status: Chronic (4) HTN (hypertension) Current Visit: Yes Status: Acute
[2018-11-15] MEDS: SODIUM CHLORIDE FLUSH SYRINGE 10 ML IV SCH (09:57)
[2018-11-15] MEDS ORDERED: NACL 0.9% 500 ML 500 ML IV SCH (10:00)
[2018-11-15] MEDS ORDERED: LOVENOX SUB-Q SCH ×2 (10:00)
[2018-11-15] MEDS ORDERED: HEPARIN 10,000 UNITS/10 ML IV ONE (10:00)
[2018-11-15] MEDS ORDERED: HEPARIN/NS 5000 UNIT/500ML(CATH LAB) 1,000 ML IR ONE (10:08)
[2018-11-15] MEDS ORDERED: NACL 0.9% 500 ML 500 ML ONE ×2 (10:09→10:17)
[2018-11-15 10:10] LABS: INR 1.05 (0.87-1.13)
[2018-11-15] MEDS: XYLOCAINE 2% INFILTRATI ONE ×2 (10:40→10:51)
[2018-11-15] MEDS: SUBLIMAZE ONE ×2 (10:40→10:48)
[2018-11-15] MEDS: VERSED ONE ×2 (10:40→10:48)
[2018-11-15] MEDS: CALAN ONE (10:41)
[2018-11-15] MEDS: HEPARIN 10,000 UNITS/10 ML ONE ×4 (10:41→11:29)
[2018-11-15] MEDS: NITROGLYCERIN SYRINGE 3 ML ONE ×2 (10:43→10:53)
[2018-11-15] MEDS ORDERED: EFFIENT PO ONE (11:21)
[2018-11-15] MEDS ORDERED: ALUM-MAG HYDROX-SIMETH 200-200-20MG/5ML ONE (11:21)
[2018-11-15] MEDS ORDERED: APRESOLINE ONE (12:31)
--- NOTE | 2018-11-15 13:25 | Cardiac Catherization Report ---
REFERRING PHYSICIAN: Hospitalist Service. INDICATION FOR PROCEDURE: The patient is an exceedingly pleasant 58-year-old -[place]er gentleman with history of hypertension, who developed chest pain after delivering a baby yesterday. He went to the Emergency Room and found to have positive troponin and noted to have a non-STEMI and referred for left heart catheterization. Risks, benefits, potential alternatives were discussed at length prior to obtaining informed consent. PROCEDURE IN DETAIL: The patient was brought to catholic priest in a postabsorptive state and prepped and draped in sterile fashion. Delonte's test in right hand was normal. A 2 mL of 2% lidocaine used to anesthetize the right wrist. A standard 6-Israeli hydrophilic sheath used to cannulate the right radial artery via modified Seldinger technique. All exchanges performed to exchange a J-tip guidewire. JL3.5 catheter used to engage left main. No dampening or ventricularization. Cineangiography performed in all projections. JR4 catheter was used to cross the aortic valve under fluoroscopic guidance. Left ventriculography performed in 30 FABIAN and 30 EMERY projections via hand injections. Catheter flushed. Manual pullback performed with continuous pressure monitoring. Catheter used to engage the right coronary. No dampening or ventricularization. Cineangiography performed in all projections. FINDINGS: Aortic pressure is 140/80, LV pressure is 140, LVP of 15 mmHg. Left ventriculography reveals normal systolic performance with estimated ejection fraction of 55-60%. No evidence of aortic stenosis. CORONARY ANATOMY: This is a right dominant system. Right coronary is a large vessel, courses AV groove, distally bifurcates in the posterior and posterolateral branches. Scattered luminal irregularities, but no discrete stenosis identified. Left main without significant disease, bifurcates into left anterior and left circumflex. LAD is a moderate sized vessel, courses anterior intergroove, wraps around the apex, no significant disease, scattered luminal irregularities in the diagonal and LAD system, but no obstructive lesions noted. Left circumflex is a moderate size vessel, courses through AV groove. Circ is a medium size. No significant disease. OM2 has a proximal lesion which is ulcerated 99% KAELA 2 flow. This is clearly the culprit lesion. At this point, we turned our attention to PCI. The patient is loaded with heparin. Abnormal ACT is confirmed. The patient loaded with aspirin. We loaded Effient. An EBU 3.5 guide was used to engage left main without difficulty. A Fulda wire was used to cross the lesion without difficulty. We predilated with a 2.0 x 15 compliant balloon. We used a 2.5 x 22 Resolute [place] stent at 10 JOSÉ for 30 seconds. Excellent angiographic result. Intravascular ultrasound was performed. Multiple passes were made. It reveals a well apposed and well expanded stent. No dissection proximally or distally. [place] mid and proximal circ without significant disease. Left main without significant disease. Final angiogram reveals excellent result, no complications. CONCLUSIONS: 1. Severe single vessel disease with ulcerated 99% proximal OM2 lesion in the milieu of a non-STEMI. A successful IVUS guided PCI placement of drug-eluting stent (Resolute Enrique 2.5 x 22) with excellent final angiographic and ultrasonographic result. 2. No other obstructive disease noted in the coronary tree. 3. Preserved left ventricular systolic performance with estimated ejection fraction of 55-60%. 4. No evidence of aortic stenosis. At this point, the patient is clinically stable, chest pain free, doing great. Standard radial care. Effient, aspirin, statin, blood pressure control, will be watched on the floor overnight and discharge in a.m. Results of procedure were explained in length to the patient and his . All questions and concerns were addressed. It is a pleasure taking care of the patient. He will follow up with me in the office. JOB# [id number] KIM/SUE
--- NOTE | 2018-11-15 14:06 | Progress Note ---
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 Initially troponin T was negative at <0.01, then 0.062 then 0.322. He went to Cardiac catherization. NSTEMI with suspected Acute Diastolic heart failure: [facility] today, treat with antiplt, statin, bblocker Hypertension: treat with bblocker History Interval history: Patient was seen and examined. Follow-up on current diagnosis. No overnight events reported to me. Patient denies any chest pain, shortness breath, nausea/vomiting or severe headaches. Imaging, nursing note, chart, labs and old chart reviewed. Discussed with patient. Gen: WDWN, NAD, Awake, Alert, Orientated HEENT: NCAT, EOMI, PERRL, OP Clear Neck: supple, no adenopathy, no thyromegaly, no JVD CVS/Heart: RRR, normal S1S2, pulses present bilaterally Chest/Lungs: CTA B, Symmetrical chest expansion, good air entry bilaterally GI/Abdomen: soft, NTND, good bowel sounds, no guarding or rebound /Bladder: no suprapubic tenderness, no CVA or paraspinal tenderness Extermity/Skin: no c/c/e, no obvious rash MSK: FROM x 4 Neuro: CN 2-12 grossly intact, no new focal deficits Psych: calm Hospitalist Physical - Constitutional Vitals: Temp Pulse Resp BP Pulse Ox 98.1 F 56 L 12 118/91 99 11/15/18 11:55 11/15/18 13:30 11/15/18 13:30 11/15/18 13:30 11/15/18 13:30 General appearance: Present: no acute distress Results - Labs CBC & Chem 7: 11/15/18 01:08 11/15/18 01:08 Labs: Laboratory Last Values WBC 7.0 K/mm3 (4.5-11.0) 11/15/18 01:08 RBC 4.58 M/mm3 (3.65-5.03) 11/15/18 01:08 Hgb 14.0 gm/dl (11.8-15.2) 11/15/18 01:08 Hct 41.2 % (35.5-45.6) 11/15/18 01:08 MCV 90 fl (84-94) 11/15/18 01:08 MCH 31 pg (28-32) 11/15/18 01:08 MCHC 34 % (32-34) 11/15/18 01:08 RDW 13.3 % (13.2-15.2) 11/15/18 01:08 Plt Count 200 K/mm3 (140-440) 11/15/18 01:08 Lymph % (Auto) 24.6 % (13.4-35.0) 11/15/18 01:08 [place] % (Auto) 8.2 % (0.0-7.3) H 11/15/18 01:08 Eos % (Auto) 3.1 % (0.0-4.3) 11/15/18 01:08 Baso % (Auto) 0.7 % (0.0-1.8) 11/15/18 01:08 Lymph # 1.7 K/mm3 (1.2-5.4) 11/15/18 01:08 [place] # 0.6 K/mm3 (0.0-0.8) 11/15/18 01:08 Eos # 0.2 K/mm3 (0.0-0.4) 11/15/18 01:08 Baso # 0.1 K/mm3 (0.0-0.1) 11/15/18 01:08 Seg Neutrophils % 63.4 % (40.0-70.0) 11/15/18 01:08 Seg Neutrophils # 4.5 K/mm3 (1.8-7.7) 11/15/18 01:08 PT 14.3 Sec. (12.2-14.9) 11/15/18 09:47 INR 1.05 (0.87-1.13) 11/15/18 09:47 185.05 ng/mlDDU (0-234) 11/15/18 01:08 Sodium 141 mmol/L (137-145) 11/15/18 01:08 Potassium 3.6 mmol/L (3.6-5.0) 11/15/18 01:08 Chloride 103.1 mmol/L (98-107) 11/15/18 01:08 Carbon Dioxide 28 mmol/L (22-30) 11/15/18 01:08 14 mmol/L 11/15/18 01:08 BUN 24 mg/dL (9-20) H 11/15/18 01:08 1.3 mg/dL (0.8-1.5) 11/15/18 01:08 Estimated GFR > 60 ml/min 11/15/18 01:08 18 % 11/15/18 01:08 Glucose 110 mg/dL (75-100) H 11/15/18 01:08 Calcium 9.6 mg/dL (8.4-10.2) 11/15/18 01:08 Magnesium 2.10 mg/dL (1.7-2.3) 11/15/18 01:08 0.40 mg/dL (0.1-1.2) 11/15/18 01:08 AST 22 units/L (5-40) 11/15/18 01:08 ALT 22 units/L (7-56) 11/15/18 01:08 85 units/L (35-129) 11/15/18 01:08 81 units/L (55-170) 11/15/18 01:08 0.322 ng/mL (0.00-0.029) H* D 11/15/18 07:23 7.6 g/dL (6.3-8.2) 11/15/18 01:08 4.2 g/dL (3.9-5) 11/15/18 01:08 1.2 % 11/15/18 01:08 Triglycerides 93 mg/dL (2-149) 11/15/18 03:46 Cholesterol 157 mg/dL (50-199) 11/15/18 03:46 112 mg/dL (50-130) 11/15/18 03:46 45 mg/dL (40-59) 11/15/18 03:46 3.48 % 11/15/18 03:46 Active Medications - Current Medications Current Medications: Generic Name Dose Route Start Last Admin Trade Name Freq PRN Reason Stop Dose Admin Acetaminophen 650 mg 11/15/18 04:41 Tylenol PO Q4H PRN Pain MILD(1-3)/Fever >100.5/JASON Amlodipine Besylate 5 mg 11/16/18 10:00 Norvasc PO QDAY RYANN Aspirin 81 mg 11/16/18 10:00 Baby Aspirin PO QDAY [facility] Atorvastatin Calcium 80 mg 11/15/18 22:00 Lipitor PO QHS RYANN Hydralazine HCl 10 mg 11/15/18 05:06 11/15/18 12:39 Apresoline IV 10 mg Q4HR PRN Administration Blood Pressure Hydromorphone HCl 0.5 mg 11/15/18 04:42 Dilaudid IV 11/16/18 23:59 Q3H PRN Pain , Severe (7-10) Sodium Chloride 500 mls @ 50 mls/hr 11/15/18 10:00 Nacl 0.9% 500 Ml IV 11/15/18 19:59 DIRECT [facility] Morphine Sulfate 2 mg 11/15/18 04:41 Morphine IV 11/16/18 23:59 Q4H PRN Pain, Moderate (4-6) Nitroglycerin 0.4 mg 11/15/18 01:03 11/15/18 01:35 Nitrostat SL 0.4 mg .Q5MIN PRN Administration Chest Pain Ondansetron HCl 4 mg 11/15/18 04:41 Zofran IV Q8H PRN Nausea And Vomiting Prasugrel 10 mg 11/16/18 10:00 Effient PO QDAY [facility] Sodium Chloride 10 ml 11/15/18 10:00 11/15/18 09:57 Sodium Chloride Flush Syringe 10 Ml IV 10 ml BID RYANN Administration Sodium Chloride 10 ml 11/15/18 04:41 Sodium Chloride Flush Syringe 10 Ml IV PRN PRN LINE FLUSH
[2018-11-16 06:06] LABS: Basophils % (Auto) 0.4 % (0.0-1.8); Eosinophils # (Auto) 0.1 K/mm3 (0.0-0.4); Eosinophils % (Auto) 2.1 % (0.0-4.3); Hematocrit 37.9 % (35.5-45.6); Lymphocytes % (Auto) 16.6 % (13.4-35.0); Mean Corpuscular HGB Conc 34 % (32-34); Mean Corpuscular Volume 90 fl (84-94); Monocytes # (Auto) 0.6 K/mm3 (0.0-0.8); Monocytes % (Auto) 9.1 % (0.0-7.3); Platelet Count 177 K/mm3 (140-440); Red Blood Count 4.21 M/mm3 (3.65-5.03); Red Cell Distribution Width 13.1 % (13.2-15.2)
[2018-11-16 06:27] LABS: Creatine Kinase MB 9.4 ng/mL (0.0-4.0)
[2018-11-16 06:32] LABS: BUN/Creatinine Ratio 13; Blood Urea Nitrogen 18 mg/dL (9-20); Hemolysis Index 3
[2018-11-16] MEDS: CALAN ONE (07:18)
[2018-11-16] MEDS: SODIUM CHLORIDE FLUSH SYRINGE 10 ML IV SCH ×2 (07:18→09:55)
[2018-11-16 08:16] VITALS: BP 150/92
--- NOTE | 2018-11-16 09:21 | XRay Report ---
PROCEDURE: XR CHEST 1V AP TECHNIQUE: Single frontal view of the chest HISTORY: post pci COMPARISONS: Chest radiograph performed on 11/15/2018 FINDINGS: The cardiomediastinal silhouette is normal in appearance. The lungs are clear without focal consolidation. No pleural effusion or pneumothorax. No acute bony or soft tissue abnormality. IMPRESSION: No acute cardiopulmonary disease. This document is electronically signed by Mayra Maya MD., Nov 16 2018 09:18:59 AM ET
[2018-11-16] MEDS ORDERED: BABY ASPIRIN PO SCH (10:00)
[2018-11-16] MEDS ORDERED: NORVASC PO SCH (10:00)
[2018-11-16] MEDS ORDERED: EFFIENT PO SCH (10:00)
--- NOTE | 2018-11-16 10:04 | Discharge Summary ---
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 Initially troponin T was negative at <0.01, then 0.062 then 0.322. He went to Cardiac catherization. S/p [facility] with PCI of OM. Initiated ASA 81, effient, lipitor 80mg. Considerd BB but HR kept dropping below 60 permit. ECHO est EF 50-55% NSTEMI with no Acute Diastolic heart failure: [facility] today, treat with antiplt, statin, no bblocker because bradycardia Hypertension: treat with bblocker CAD (coronary artery disease) Stented coronary artery HTN (hypertension) Bradycardia, regular Disposition: DC-01 TO HOME OR SELFCARE Time spent for discharge: 34 minutes Core Measure Documentation - Palliative Care Palliative Care/ Comfort Measures: Not Applicable - Core Measures Any of the following diagnoses?: acute MS - VTE Discharge Requirements Deep Vein Thrombosis/Pulmonary Embolism Present on Admission: No Has pt received <5 days of overlap therapy or INR<2.0: No Anticoagulant overlap therapy prescribed at discharge: No Contraindication No Overlap Therapy order at DC: Not Indicated - Acute MS Discharge Requirements Aspirin at discharge: Yes PERCY/ARB for LVSD if EF <40%: Yes Beta vicki at discharge: No Reason for no beta vicki on DC: Bradycardia Statin for LDL = or >100 mg/dl on DC: Yes Exam - Constitutional Vitals: Temp Pulse Resp BP Pulse Ox 98.2 F 81 14 150/92 96 11/16/18 07:54 11/16/18 08:08 11/16/18 07:54 11/16/18 07:54 11/16/18 07:54 General appearance: Present: no acute distress - EENT Eyes: Present: EOM intact ENT: hearing intact - Neck Neck: Present: supple, normal ROM - Respiratory Respiratory effort: normal Respiratory: bilateral: CTA - Cardiovascular Rhythm: regular Heart Sounds: Present: S1 & S2 - Abdominal General gastrointestinal: Present: soft, non-tender, normal bowel sounds - Musculoskeletal Musculoskeletal: strength equal bilaterally - Psychiatric Psychiatric: appropriate mood/affect, intact judgment & insight - Neurologic Neurologic: CNII-XII intact, no focal deficits Plan Activity: other (no strenous activity until cleared by Home Health Attendant) Diet: low salt Special Instructions: record daily BP diary Follow up with: FRANKLIN MEJIA MD [Staff Physician] - 7 Days Forms: [facility] PCI D/C Instructions, Discharge Signature Page Prescriptions: AtorvaSTATin [Lipitor] 80 mg PO QHS #30 tablet Aspirin [Aspirin BABY CHEW TAB] 81 mg PO QDAY #30 tab.chew Prasugrel [Effient] 10 mg PO QDAY #30 tablet Famotidine [Pepcid] 20 mg PO QDAY #30 tablet
== END 2018-11-16 10:45 | disposition home or self-care (01) | DRG 247 ==
LOC: EEVIPCON 00:49 → ED 00:49 → 4A 04:38
PROVIDERS: ADMIT Internal Medicine; ATTEND Internal Medicine
PROC: 027034Z Dilation of Coronary Artery, One Artery with Drug-eluting Intraluminal Device, Percutaneous Approach (ICD-10-PCS; principal; 2018-11-15)
PROC: 4A023N7 Measurement of Cardiac Sampling and Pressure, Left Heart, Percutaneous Approach (ICD-10-PCS; 2018-11-15)
PROC: B2111ZZ Fluoroscopy of Multiple Coronary Arteries using Low Osmolar Contrast (ICD-10-PCS; 2018-11-15)
PROC: B2151ZZ Fluoroscopy of Left Heart using Low Osmolar Contrast (ICD-10-PCS; 2018-11-15)
PROC: B241ZZ3 Ultrasonography of Multiple Coronary Arteries, Intravascular (ICD-10-PCS; 2018-11-15)
DX: I21.4 Non-ST elevation (NSTEMI) myocardial infarction (principal); I16.0 Hypertensive urgency; I10 Essential (primary) hypertension; I25.10 Atherosclerotic heart disease of native coronary artery without angina pectoris; R00.1 Bradycardia, unspecified; Z79.82 Long term (current) use of aspirin; Z79.899 Other long term (current) drug therapy
CPT/HCPCS: 36415; 71045; 80048; 80053; 80061; 82550; 82553; 83735; 84484; 85025; 85347; 85379; 85610; 92928; 92978; 93005; 93010; 93306; 93458; 96372; 96374; G0378; A9270-GY; C1725; C1753; C1769; C1874; C1887; C1894; C9600; J0360; J1644; J1885; J2250; J3010; J7040; Q9967